=== PATIENT | female | born 1990 | race African-American/Black ===

== ENCOUNTER 2017-01-03 18:29 | Emergency (ER) | payer MEDICAID, OTHER ==
[~2017-01-03] VITALS: Ht 154.9 cm; Wt 75.0 kg
[2017-01-03 18:42] VITALS: BP 124/79
== END 2017-01-03 21:55 | disposition left against medical advice (07) ==
LOC: ER 21:52
DX: Z53.21 Procedure and treatment not carried out due to patient leaving prior to being seen by health care provider (principal)
CPT/HCPCS: 93005

== ENCOUNTER 2017-01-31 19:21 | Emergency (ER) | payer OTHER | END 2017-01-31 23:35 | disposition left against medical advice (07) | LOC: ER 20:15 | DX: F41.0 Panic disorder [episodic paroxysmal anxiety] (principal); Z53.21 Procedure and treatment not carried out due to patient leaving prior to being seen by health care provider ==

== ENCOUNTER 2017-05-12 16:53 | Emergency (ER) | payer OTHER ==
[~2017-05-12] VITALS: Ht 157.5 cm; Wt 64.0 kg
[2017-05-12 16:55] VITALS: BP 113/51
== END 2017-05-12 18:32 | disposition left against medical advice (07) ==
LOC: ER 17:06
DX: R06.02 Shortness of breath (principal); Z53.21 Procedure and treatment not carried out due to patient leaving prior to being seen by health care provider

== ENCOUNTER 2017-07-01 12:06 | Emergency (ER) | payer OTHER ==
[~2017-07-01] VITALS: Ht 160 cm; Wt 67.0 kg
[2017-07-01 12:09] VITALS: BP 108/66
[2017-07-01] MEDS ORDERED: IBUPROFEN 600MG TABLET PO ONE (12:15)
== END 2017-07-01 14:00 | disposition left against medical advice (07) ==
LOC: ER 12:32
DX: R07.2 Precordial pain (principal); R11.0 Nausea; R06.02 Shortness of breath
CPT/HCPCS: 93005; 99283; Z7610

== ENCOUNTER 2017-10-14 07:09 | Emergency (ER) | payer OTHER ==
[~2017-10-14] VITALS: Ht 154.9 cm; Wt 65.0 kg
[2017-10-14 09:14] LABS: CLARITY URINE CLEAR (CLEAR); COLOR URINE YELLOW (YELLOW); KETONES URINE NEGATIVE (NEGATIVE); LEUKOCYTE ESTERASE URINE NEGATIVE (NEGATIVE); NITRITE URINE NEGATIVE (NEGATIVE); OCCULT BLOOD URINE NEGATIVE (NEGATIVE); PROTEIN URINE NEGATIVE (NEGATIVE); SPECIFIC GRAVITY URINE 1.019 (1.005-1.030)
[2017-10-14 10:50] VITALS: BP 125/81
== END 2017-10-14 10:51 | disposition home or self-care (01) ==
LOC: ER 07:09
DX: J06.9 Acute upper respiratory infection, unspecified (principal); J02.9 Acute pharyngitis, unspecified; Z98.890 Other specified postprocedural states; Z88.8 Allergy status to other drugs, medicaments and biological substances
CPT/HCPCS: 71045; 81003; 81025; 99285

== ENCOUNTER 2017-12-27 13:33 | Emergency (ER) | payer OTHER | END 2017-12-27 15:21 | disposition left against medical advice (07) | LOC: ER 13:33 | DX: Z53.21 Procedure and treatment not carried out due to patient leaving prior to being seen by health care provider (principal) ==

== ENCOUNTER 2019-04-07 17:43 | Emergency (ER) | payer MEDICAID, OTHER ==
[~2019-04-07] VITALS: Ht 154.9 cm; Wt 67.0 kg
[2019-04-07 20:17] VITALS: BP 120/64
== END 2019-04-07 20:15 | disposition home or self-care (01) ==
LOC: ER 18:18
DX: S56.912A Strain of unspecified muscles, fascia and tendons at forearm level, left arm, initial encounter (principal); Z88.8 Allergy status to other drugs, medicaments and biological substances; W18.39XA Other fall on same level, initial encounter; Y93.89 Activity, other specified; Y92.098 Other place in other non-institutional residence as the place of occurrence of the external cause; Y99.8 Other external cause status
CPT/HCPCS: 73070; 99283; Z7610; A4565

== ENCOUNTER 2021-04-28 21:09 | Emergency (ER) | payer MEDICAID ==
[~2021-04-28] VITALS: Ht 175.3 cm; Wt 74.0 kg
[2021-04-28] MEDS ORDERED: MAGNESIUM/ALUMINUM HYDROXIDE/SIMETHICONE 30ML UDC PO STA (22:06)
[2021-04-28] MEDS ORDERED: ONDANSETRON 4MG ODT PO STA (22:06)
[2021-04-28 22:59] LABS: BASOPHILS % 0.8 % (0.0-2.0); EOSINOPHILS % 3.5 % (0.0-5.0); HEMATOCRIT. 39.2 % (36.0-48.0); HEMOGLOBIN. 12.8 g/dL (12.0-16.0); LYMPHOCYTES % 29.3 % (20.0-50.0); MEAN CORPUSCULAR HEMOGLOBIN 28.3 pg (28.0-32.0); MEAN CORPUSCULAR VOLUME 86.4 fL (81.0-99.0); MEAN PLATELET VOLUME 8.4 fl (7.4-10.4); NEUTROPHILS % 60.4 % (40.0-76.0); PLATELET 201 x1000/uL (130-400); RED BLOOD CELL COUNT 4.54 mill/uL (4.2-5.4); RED CELL DISTRIBUTION WIDTH 14.5 % (11.6-14.6)
[2021-04-28 23:02] LABS: CHLORIDE 103 mEq/L (98-107)
[2021-04-28] MEDS ORDERED: ONDANSETRON 4MG ODT PO ONE (23:45)
[2021-04-28] MEDS ORDERED: MORPHINE SULFATE 10 MG/ML CPJ IM ONE (23:45)
[2021-04-29] MEDS ORDERED: OMEP20CA14 MT (00:39)
[2021-04-29] MEDS ORDERED: IBUP-2029 MT (00:39)
[2021-04-29] MEDS ORDERED: MORPHINE SULFATE 2 MG/ML CPJ (NOT FOR IM USE) IV SCH (01:00)
[2021-04-29] MEDS ORDERED: MORPHINE SULFATE 10 MG/ML CPJ IM SCH (01:00)
[2021-04-29] MEDS ORDERED: KETOROLAC 60MG/2ML VIAL IM ONE (01:30)
[2021-04-29 01:34] VITALS: BP 109/74
== END 2021-04-29 01:38 | disposition home or self-care (01) ==
LOC: ER 21:09
DX: R10.13 Epigastric pain (principal); R11.0 Nausea
CPT/HCPCS: 36415; 76705; 80053; 81025; 83690; 85025; 96372; 99284; J1885; J2270; Q0162

== ENCOUNTER 2023-11-07 18:51 | Emergency (ER) | payer MEDICAID ==
[~2023-11-07] VITALS: Ht 160 cm; Wt 61.0 kg
[~2023-11-07 18:51] MED LIST: IBUP-2029 MT; OMEP20CA14 MT
[2023-11-07 18:55] VITALS: O2SAT 99
[2023-11-07] MEDS: KETOROLAC 15MG/ML VIAL IM ONE (20:40)
[2023-11-07] MEDS: LIDOCAINE 5% PATCH TOP SCH (20:40)
[2023-11-07] MEDS ORDERED: NAPR-1176 MT (21:23)
[2023-11-07] MEDS ORDERED: LIDO700A15 TP (21:23)
[2023-11-07 22:00] VITALS: BP 114/70; PULSE 60; RESP 20; TEMP 98
== END 2023-11-07 22:02 | disposition home or self-care (01) ==
LOC: ER 18:51
DX: M54.2 Cervicalgia (principal); M54.50 Low back pain, unspecified; Z90.49 Acquired absence of other specified parts of digestive tract; Z98.890 Other specified postprocedural states; Z79.899 Other long term (current) drug therapy; V49.49XA Driver injured in collision with other motor vehicles in traffic accident, initial encounter; Y93.89 Activity, other specified; Y92.89 Other specified places as the place of occurrence of the external cause; Y99.8 Other external cause status
CPT/HCPCS: 99283; 81025; 96372; J1885